=== PATIENT | female | born 1940 | race Caucasian/White ===

== ENCOUNTER 2017-03-22 10:51 | Emergency (ER) | payer OTHER ==
--- NOTE | ~2017-03-22 | CT71 ---
[facility] A Service of [facility] & [facility] RADIOLOGY TEXT RESULTS PATIENT: BERTHA MILLER LOCATION: [facility] : 42 UNIT #: [id number] AGE: [address]: Carlos Anderson MD SEX: F ORDER DR: [id number] [facility] [address] [place], [place] [address] [id number] E MR#: [id number] #: [id number] NAME: BERTHA MILLER. : 1940 SEX: F STUDY DATE/TIME: 03/22/2017 12:08 UNIT: [facility] ROOM: STUDY DESCRIPTION: CT Head Wo Contrast Attending Physician: Carlos Anderson M.D. Ordering Physician: Carlos Anderson M.D. Primary Care Physician: Mitch Srivastava M.D. MEDICAL IMAGING REPORT This report is preliminary unless electronic signature is present EXAM Head CT no contrast 03/22/2017 INDICATION Hematoma above the left eye, fell today, hypertension, diabetes. TECHNIQUE Noncontrast CT brain was performed and compared with 09/06/2011. This CT examination was performed with one or more of the following radiation dose reduction techniques: automatic exposure control, adjustment of mA and/or kV according to patient size, and iterative reconstruction. FINDINGS There is mild generalized atrophy. Sulci and ventricles are otherwise unremarkable. No midline shift. No evidence of acute intracranial hemorrhage. There is no mass, mass effect or edema to suggest acute infarct and no extraaxial fluid collections are present. The globes are intact. There is periorbital soft tissue swelling on the left. Subcutaneous air most characteristic of laceration injuries on the left. There is high-attenuation fluid in the left maxillary sinus and there is a fracture of the anterior wall of the left maxillary sinus with a probable additional orbital floor fracture on the left with blood products in the left maxillary sinus. CT facial bones recommended for further assessment. Chronic-appearing ethmoid sinus disease. Atherosclerotic calcifications are present. IMPRESSION 1. No evidence of acute intracranial hemorrhage. Generalized atrophy and atherosclerotic change. 2. There is a fracture of the anterior wall left maxillary sinus and a probable associated orbital floor fracture on the left. There is blood STS. [facility] A Service of [facility] & [facility] RADIOLOGY TEXT RESULTS PATIENT: BERTHA MILLER [facility] #: [id number] : 42 UNIT #: [id number] AGE: [address]: Carlos Anderson MD SEX: F ORDER DR: in the left maxillary sinus. Facial bone CT recommended for further assessment. 3. Soft tissue swelling and laceration injury involving the periorbital region on the left. 4. Findings called to Dr. Anderson at the time of this dictation. STAT * RESULT Dictated by... Stephen Barajas M.D. THIS IS AN ELECTRONICALLY VERIFIED REPORT Stephen Barajas M.D. at 03/22/2017 4:58 PM ADRIANA/emelina TD: 03/22/2017 12:56 JOB #: [id number] MEDICAL IMAGING REPORT Page 1 of 1 COPY
--- NOTE | ~2017-03-22 | CT101 ---
[facility] A Service of [facility] RADIOLOGY TEXT RESULTS PATIENT: BERTHA MILLER LOCATION: [facility] : 42 UNIT #: [id number] AGE: [address]: Carlos Anderson MD SEX: F ORDER DR: [id number] [facility] [address] [place], [place] [address] [id number] E MR#: [id number] Acc #: [id number] NAME: BERTHA MILLER : 1940 SEX: F STUDY DATE/TIME: 03/22/2017 13:20 UNIT: [facility] ROOM: STUDY DESCRIPTION: CT Maxillofacial Area Wo Cont Attending Physician: Carlos Anderson M.D. Ordering Physician: Carlos Anderson M.D. Primary Care Physician: Mitch Srivastava M.D. MEDICAL IMAGING REPORT This report is preliminary unless electronic signature is present EXAM CT scan of the face without contrast HISTORY Fall with hematoma above left eye. The patient fell today, has pain. No comparison. The CT exam was performed with one or more of the following radiation dose reduction techniques: automatic exposure control, adjustment of mA and/or kV according to patient size, and iterative reconstruction. Axial 2 mm images were obtained through the facial bones and frontal and sagittal images were generated. FINDINGS There are multiple tiny bubbles of air in the soft tissue superior to the left of the left orbit. There is a blowout fracture of the orbital floor that is about a centimeter in maximum dimension. There are blood products partially filling the left maxillary sinus. The maxillary sinus tyler are intact. The orbital rim is intact. The other facial bones are normal. IMPRESSION 1. There appears to be an isolated blowout fracture of the left orbital floor measuring approximately a centimeter in maximum dimension. There is fluid partially filling the left maxillary sinus most likely representing blood. 2. There are multiple small air bubbles in the soft tissues superior to the left of the orbit. There is a small amount of fluid in the left frontal sinus as well but no frontal sinus fracture is visible. Dictated by... [facility] A Service of [facility] RADIOLOGY TEXT RESULTS PATIENT: BERTHA MILLER LOCATION: [facility] #: [id number] : 42 UNIT #: [id number] AGE: [address]: Carlos Anderson MD SEX: F ORDER DR: Jerel Williamson M.D. THIS IS AN ELECTRONICALLY VERIFIED REPORT Jerel Williamson M.D. at 03/23/2017 7:28 AM MICHELINE/jordon TD: 03/22/2017 13:47 JOB #: [id number] MEDICAL IMAGING REPORT Page 1 of 1 COPY
--- NOTE | ~2017-03-22 | CR281 ---
[facility] A Service of [facility] & [facility] RADIOLOGY TEXT RESULTS PATIENT: BERTHA MILLER LOCATION: [facility] : 42 UNIT #: [id number] AGE: [address]: Carlos Anderson MD SEX: F ORDER DR: [id number] [facility] [address] [place], [place] [address] [id number] P MR#: [id number] Acc #: [id number] NAME: BERTHA MILLER : 1940 SEX: F STUDY DATE/TIME: 03/22/2017 UNIT: [facility] ROOM: STUDY DESCRIPTION: CR Wrist Min 3 View Lt Attending Physician: Carlos Anderson M.D. Ordering Physician: Carlos Anderson M.D. Primary Care Physician: Mitch Srivastava M.D. MEDICAL IMAGING REPORT This report is preliminary unless electronic signature is present XAM Left wrist 3 views 03/22/2017 11:57 hours HISTORY 76-year-old woman who fell on earlier today with pain and swelling. Patient tripped and lost her balance and fell. COMPARISON 02/25/2005 FINDINGS AP, lateral and oblique views demonstrate plate and screw fixation of previous distal radial fracture which appears healed. There is a small cleft or lucency at the radial styloid best seen on the oblique view which I would favor is related to some spurring, new since the prior comparison of 02/25/2005. A fracture cannot be excluded. There does appear to be some overlying soft tissue swelling. There is no prior postoperative wrist film for comparison. The carpal bones are osteopenic without definite acute fracture. Dorsal soft tissue swelling is seen over the carpal bones. IMPRESSION 1. There is prior plate screw fixation of a distal radial fracture which appears healed. This is new since the comparison films of 02/25/2005. 2. There is an area of lucent cleft of lucency at the radial styloid not seen on the prior preoperative films of 02/25/2005. This could represent an acute fracture or chronic change from prior injury. There does appear to be some overlying superficial edema raising concern for fracture in this area. Unfortunately there are no prior postoperative views of the wrist for comparison. 3. There is dorsal soft tissue swelling over the carpus without definite fracture of the carpal bones. No dislocations seen. [facility] A Service of [facility] RADIOLOGY TEXT RESULTS PATIENT: BERTHA MILLER LOCATION: [facility] : 42 UNIT #: [id number] AGE: [address]: Carlos Anderson MD SEX: F ORDER DR: Dictated by... Florencia Hayden M.D. THIS IS AN ELECTRONICALLY VERIFIED REPORT Florencia Hayden M.D. at 03/22/2017 2:29 PM KAREEM/jordon TD: 03/22/2017 12:31 JOB #: [id number] MEDICAL IMAGING REPORT Page 1 of 1 COPY
--- NOTE | ~2017-03-22 | CT52 ---
[facility] A Service of [facility] & [facility] RADIOLOGY TEXT RESULTS PATIENT: BERTHA MILLER LOCATION: [facility] : 42 UNIT #: [id number] AGE: [address]: Carlos Anderson MD SEX: F ORDER DR: [id number] [facility] [address] [place], [place] [address] [id number] E MR#: [id number] Acc #: [id number] NAME: BERTHA MILLER : 1940 SEX: F STUDY DATE/TIME: 03/22/2017 12:13 UNIT: [facility] ROOM: STUDY DESCRIPTION: CT Cervical Spine Wo Cont Attending Physician: Carlos Anderson M.D. Ordering Physician: Carlos Anderson M.D. Primary Care Physician: Mitch Srivastava M.D. MEDICAL IMAGING REPORT This report is preliminary unless electronic signature is present EXAM CT cervical spine without contrast date 03/22/2017 HISTORY 76-year-old female with right-side neck pain after falling today. COMPARISON None. PROCEDURE 2 mm axial images through the cervical spine without contrast. Sagittal and coronal reformatted images were obtained. This CT exam was performed with one or more of the following radiation dose reduction techniques: automatic exposure control, adjustment of mA and/or kV according to patient size, and iterative reconstruction. FINDINGS Craniocervical junction is intact. Anterior plate and screw fusion changes are present at C5-C6, and the hardware appears intact. There is osseous fusion across the C5-6 disc space. There is moderate diminished disc height at C4-5 with vacuum disc phenomenon and anterior-posterior osteophyte formation. Anterior osteophytes are also present at C6-7 and C7-T1. At C2-3, posterior disc osteophyte formation is present with bilateral uncovertebral spurring, and there is advanced right side facet arthropathy. There is mild right neural foraminal narrowing, but no significant neural foraminal stenosis. No significant left neural foraminal narrowing. At C3-4, there is advanced right facet arthropathy with mild right side uncovertebral spurring. Severe right neural foraminal stenosis is [facility] A Service of [facility] & [facility] RADIOLOGY TEXT RESULTS PATIENT: BERTHA MILLER LOCATION: [facility] #: [id number] : 42 UNIT #: [id number] AGE: [address]: Carlos Anderson MD SEX: F ORDER DR: present. The left neural foramen appears patent. No significant canal stenosis. At C4-5, there is mild broad-based posterior osteophyte formation with right-side uncovertebral spurring, moderate facet arthropathy. There is moderate right greater left neural foraminal narrowing and mild canal stenosis. At C5-6, minimal posterior osteophyte formation is present with mild bilateral facet arthropathy. Borderline canal stenosis, very mild right neural foraminal narrowing. At C6-7, there is mild left paracentral osteophyte formation with borderline left anterior canal stenosis. Probable mild left neural foraminal narrowing. Right neural foramina appears widely patent. A C7-T1, no disc bulge, canal or foraminal stenosis is seen. Paraspinal soft tissues are notable for only mild calcific atherosclerosis in the right carotid bulb. IMPRESSION 1. No acute cervical spine findings. 2. Anterior plate and screw fusion at C5-6. Hardware appears intact. 3. Moderate diminished disc height at C4-5. 4. Degenerative changes of cervical spine as described in the report, with severe right neural foraminal narrowing at C3-4, moderate to severe bilateral neural foraminal narrowing at C4-5. 5. No high-grade canal stenosis is seen. Dictated by... Christina Jose M.D. THIS IS AN ELECTRONICALLY VERIFIED REPORT Christina Jose M.D. at 03/24/2017 7:14 AM Simon TD: 03/22/2017 13:15 JOB #: [id number] MEDICAL IMAGING REPORT Page 1 of 1 COPY
[~2017-03-22 10:51] MED LIST: ALLERGY RELIEF10 MG PO; ASPIRIN PO; BACTRIM DS TABL1 TA1; BENICAR20 MG PO; CELEXA; CELEXA PO; CELEXA20 MG PO; CERTAVITE PO; COZAAR100 MG PO; ENFOLAST TABLE1 EACH PO; GLUCOPHAGE500 MG PO; HCTZ; IBUPROFEN; KCL; KEFLEX500 MG PO; LIPITOR; LOMOTIL TABLET1 TAB PO; LORTAB 5/500 TA1 TA2; OSTEOBIFLEX PO; PERCOCET PO; PRAVACHOL PO; PRAVASTATIN SOD40 MG PO; PRILOSEC PO; PRILOSEC20 MG PO; SALSALATE; VITAMIN B12-FO1 EACH PO; ZYLOPRIM PO; [UNRECOGNIZED DRUG - OTHER] PO
[2017-03-22] MEDS ORDERED: PRAVASTATIN SOD40 MG PO (11:13)
[2017-03-22] MEDS ORDERED: CELEXA10 MG PO (11:13)
[2017-03-22] MEDS ORDERED: ASPIRIN81 MG PO (11:13)
[2017-03-22] MEDS ORDERED: GABAPENTIN400 M2 PO (11:14)
[2017-03-22] MEDS ORDERED: NORVASC PO (11:14)
[2017-03-22] MEDS ORDERED: ALLOPURINOL300 MG PO (11:14)
[2017-03-22] MEDS ORDERED: FOLIC ACID800 MCG DOB (11:14)
[2017-03-22] MEDS ORDERED: FORTAMET500 MG PO (11:15)
[2017-03-22] MEDS ORDERED: LOSARTAN-HCTZ1 EAC2 PO (11:15)
[2017-03-22] MEDS ORDERED: BIOTIN5000 MCG PO (11:16)
[2017-03-22] MEDS ORDERED: MULTIVITAMINS1 EAC3 PO (11:16)
== END 2017-03-22 14:28 | disposition home or self-care (01) ==
LOC: CED 10:51
DX: S02.32XA Fracture of orbital floor, left side, initial encounter for closed fracture (principal); S52.502A Unspecified fracture of the lower end of left radius, initial encounter for closed fracture; W18.30XA Fall on same level, unspecified, initial encounter
CPT/HCPCS: 70450; 70486; 72125; 73110; 82947; 99284